=== PATIENT | male | born 1975 | race Caucasian/White ===

== ENCOUNTER 2016-07-29 11:11 | Emergency (ER) | payer SELFPAY ==
[~2016-07-29] VITALS: Ht 170.2 cm; Wt 63.5 kg
[2016-07-29 12:01] VITALS: BP 123/87
--- NOTE | 2016-07-29 12:09 | ED SKIN/ALLERGY COMPLAINT ---
History of Present Illness General Chief Complaint: Suture Removal/Wound Recheck Stated Complaint: SUTURE REMOVAL Source: patient Exam Limitations: no limitations Vital Signs & Intake/Output Vital Signs & Intake/Output Vital Signs Date Time Temp Pulse Resp B/P Pulse O2 O2 Flow FiO2 Ox Delivery Rate 07/29 1201 98.3 86 16 123/87 95 Room Air Allergies Coded Allergies: No Known Allergies (07/29/16) Triage Note: PT HERE FOR STAPLE REMOVAL. PT WAS SEEN IN [facility] AND THEY PUT PHANI IN BILAT WRIST. Triage Nurses Notes Reviewed? yes HPI: This patient is a 41-year-old male who presented to the emergency department today for staple removal. This patient was seen approximately 10 days ago at [facility] after he slit his wrists. 9 phani were placed to the left wrist. 8 phani were placed to the right wrist. The patient denied any pain. No discharge. No signs of infection or fevers. The patient has been keeping the wound sites clean. (MAZIN VEGA PA-C) Past History Travel History Traveled to [place] past 21 day No Medical History Any Pertinent Medical History? see below for history Surgical History Surgical History: non-contributory Psychosocial History What is your primary language Belarusian Tobacco Use: Current Daily Use Daily Tobacco Use Amount/Type: => 5 Cigarettes daily ETOH Use: denies use Illicit Drug Use: denies illicit drug use Family History Hx Contributory? No (MAZIN VEGA PA-C) Review of Systems Review of Systems Constitutional: Reports: no symptoms. EENTM: Reports: no symptoms. Respiratory: Reports: no symptoms. Cardiovascular: Reports: no symptoms. GI: Reports: no symptoms. Genitourinary: Reports: no symptoms. Musculoskeletal: Reports: no symptoms. Skin: Reports: see HPI. Neurological/Psychological: Reports: no symptoms. All Other Systems: Reviewed and Negative (MAZIN VEGA PA-C) Physical Exam Physical Exam General Appearance: well developed/nourished, no apparent distress, alert, awake Comments: Well-developed well-nourished person in no acute distress HEENT: Normal EENT exam, moist mucous membranes Pupils equally round and reactive to light. Neck: Supple Back: Normal gait Respiratory: No respiratory distress. Speaking in full sentences Extremity: Normal and equal pulses Neuro: Alert oriented x3, motor sensory normal, cranial nerves II through XII grossly intact. Skin: No appreciable rash on exposed skin, skin is warm and dry. 9 phani placed to the ventral aspect of the left wrist with no surrounding erythema or edema. No discharge from the wound site. Nontender to palpation. 8 phani placed ventral aspect of the right wrist with no surrounding erythema or edema and no discharge. Nontender to palpation Psych: Mood and affect is normal, memory and judgment is normal. (MAZIN VEGA PA-C) Progress Differential Diagnosis: abscess/cellulitis, staple removal Plan of Care: This patient is a 41-year-old male who presented to the emergency department today requesting staple removal. He had a total of 17 phani placed to bilateral wrists after cutting his wrists approximately 10 days ago and being seen at [facility]. No signs of infection. No drainage from the wound sites. No surrounding erythema or edema. The patient has not been experiencing any pain or fevers. I removed all phani. Patient tolerated the procedure well. Stable for discharge home. (MAZIN VEGA PA-C) Departure Departure Disposition: HOME OR SELF CARE Condition: Stable Clinical Impression Primary Impression: Removal of staple Additional Instructions: Continue to keep wound sites clean and dry. Follow-up with her primary care physician. Return for any worsening symptoms or concerns. Departure Forms: Customer Survey General Discharge Information (MAZIN VEGA PA-C) PA/VISCER[employer] WASHER Co-Sign Statement Statement: ED Attending supervision documentation- [] I saw and evaluated the patient. I have also reviewed all the pertinent lab results and diagnostic results. I agree with the findings and the plan of care as documented in the PA's/VISCERA WASHER's documentation. x I have reviewed the ED Record and agree with the PA's/VISCERA WASHER's documentation. [] Additions or exceptions (if any) to the PAs/VISCERA WASHER's note and plan are summarized below: [] (GINGER HERNANDEZ,ELISSA)
== END 2016-07-29 12:17 ==
LOC: ERH 11:11
DX: Z48.02 Encounter for removal of sutures (principal)
CPT/HCPCS: 99281